=== PATIENT | male | born 1990 | race Caucasian/White ===

== ENCOUNTER 2023-11-29 23:45 | Emergency (ER) | payer BC ==
[~2023-11-29] VITALS: Ht 175.3 cm; Wt 85.0 kg
[~2023-11-29 23:45] MED LIST: PROCHLORPERAZINE EDISYLATE 10 MG/2 ML VIAL IV ONE
[2023-11-29] MEDS ORDERED: CORGARD20 MG PO (23:51)
[2023-11-30 00:19] LABS: BASOPHILS 0.8 % (0-2); EOSINOPHILS 1.6 % (0-6); HEMATOCRIT 39.5 % (35.0-50.0); HEMOGLOBIN 13.5 g/dL (12.0-18.0); LYMPHOCYTES 38.5 % (24-44); MCHC 34.2 g/dl (30-36); MCV 87.9 fl (81-99); MONOCYTES 7.7 % (0-12); NEUTROPHILS 51.4 % (39-80); PLATELET COUNT 230 K/uL (140-440); RBC 4.49 M/ul (4.3-5.7); RDW 13.1 (10.5-15.0)
[2023-11-30 00:36] LABS: ALBUMIN 3.6 g/dL (3.4-5.0); ALBUMIN/GLOBULIN RATIO 1.2 (1.1-2.4); ANION GAP 12.6 (7-21); BILIRUBIN, TOTAL 0.3 ng/dL (0.2-1.0); BUN/CREATININE RATIO 11.3 (6.0-28.6); CALCIUM 7.8 mg/dL (8.5-10.1); CREATININE, SERUM 1.15 mg/dL (0.70-1.30); MAGNESIUM 1.8 mg/dL (1.8-2.4); POTASSIUM 3.6 mmol/L (3.5-5.1); PROTEIN, TOTAL 6.6 g/dL (6.4-8.2)
[2023-11-30 01:00] VITALS: BP 101/70
== END 2023-11-30 01:00 | disposition home or self-care (01) ==
LOC: ED 23:45
PROVIDERS: Family Medicine
DX: F10.129 Alcohol abuse with intoxication, unspecified (principal); Y90.8 Blood alcohol level of 240 mg/100 ml or more
CPT/HCPCS: 36415; 80053; 80307; 83735; 85025; 96374; 99284-25; G0480; J0780